=== PATIENT | male | born 1955 | race Caucasian/White ===

== ENCOUNTER 2019-03-04 07:58 | Emergency (ER) | payer OTHER ==
[~2019-03-04] VITALS: Ht 193 cm; Wt 78.6 kg
[2019-03-04] MEDS ORDERED: PROPARACAINE 0.5% OPHTH SOL 15ML OD ONE (08:45)
[2019-03-04 09:00] LABS: BASO % 0.4 % (0.0-1.0); EOS % 0.4 % (0.0-3.0); HEMATOCRIT 46.9 % (42.0-52.0); HEMOGLOBIN 15.6 g/dl (13.5-17.5); LYMPH # 1.4 10^3/uL (1.5-5.0); LYMPH % 13.8 % (24.0-44.0); MEAN CORPUSCULAR HEMOGLOBIN 28.9 pg (27.0-33.0); MEAN CORPUSCULAR HGB CONC 33.3 g/dl (32.0-36.5); MEAN CORPUSCULAR VOLUME 86.9 fl (80.0-96.0); MONO # 0.7 10^3/uL (0.0-0.8); MONO % 6.7 % (0.0-5.0); NEUTROPHILS # 7.9 10^3/uL (1.5-8.5); NEUTROPHILS % 78.3 % (36.0-66.0); PLATELET COUNT, AUTOMATED 212 10^3/uL (150-450); WHITE BLOOD COUNT 10.1 10^3/uL (4.0-10.0)
--- NOTE | 2019-03-04 09:12 | REP ---
CT of the head without contrast Indication: Facial pain/headache. Comparison: None Technique: Axial CT of the head was performed without contrast. Findings: There is no visible soft tissue swelling or calvarial fracture. There is no evidence of acute intracranial hemorrhage or extra-axial fluid collection. [place]-white matter differentiation is maintained. There is no mass effect or midline shift. The basal cisterns are patent. There is no hydrocephalus. The visualized paranasal sinuses and mastoid air cells are clear. Impression: No acute intracranial abnormality. Electronically Signed by Mark Fuentes MD 03/04/2019 09:03 A
[2019-03-04 09:20] LABS: ERYTHROCYTE SEDIMENTATION RATE 12 mm/hr (0-20)
[2019-03-04 09:22] LABS: ALBUMIN 3.8 GM/DL (3.2-5.2); ALT/SGPT 31 U/L (12-78); BILIRUBIN,TOTAL 0.5 MG/DL (0.2-1.0); BLOOD UREA NITROGEN 16 MG/DL (7-18); CALCIUM LEVEL 9.3 MG/DL (8.8-10.2); CARBON DIOXIDE LEVEL 25 MEQ/L (21-32); CHLORIDE LEVEL 109 MEQ/L (98-107); CREATININE FOR GFR 0.93 MG/DL (0.70-1.30); GLOMERULAR FILTRATION RATE > 60.0 (>49); GLUCOSE, FASTING 101 MG/DL (70-100); POTASSIUM SERUM 4.1 MEQ/L (3.5-5.1); SODIUM LEVEL 142 MEQ/L (136-145); TOTAL PROTEIN 6.8 GM/DL (6.4-8.2)
--- NOTE | 2019-03-04 12:14 | REP ---
MRI of the brain without contrast Indication: Facial pain/paresthesia right. Comparison: CT head of today. Technique: MRI of the brain was performed without contrast utilizing sagittal T1 FLAIR, and axial DWI, T1, T2, GRE, and FLAIR imaging. Findings: There is no restricted diffusion to suggest acute ischemia or infarction. There are mild scattered T2 hyperintensities within the periventricular, subcortical and pontine white matter which are nonspecific but suggestive of microvascular ischemic disease. The ventricles and sulci are symmetric. There is no extra-axial fluid collection. There is no mass effect. There is no midline shift or basal cistern effacement. The visualized flow voids are preserved. The visualized paranasal sinuses and mastoid air cells are clear. Impression: No acute ischemia or infarction. Mild white matter changes are nonspecific but suggestive of microvascular ischemic disease. Electronically Signed by Mark Fuentes MD 03/04/2019 12:05 P
--- NOTE | 2019-03-04 12:18 | REP ---
MRA of the brain without contrast Indication: Facial pain/paresthesia right. Comparison: None Technique: 3D time of flight MR angiogram of the [place] of [place] was performed without contrast. MIP images of the vessels were obtained including tumble and spin MIP imaging. Findings: There is antegrade flow within the distal ICAs and proximal MCAs and ACAs, the distal vertebral arteries, basilar artery and proximal product support rep. There is no evidence of cerebrovascular occlusion or aneurysmal formation. Impression: No cerebrovascular occlusion or aneurysmal formation. Electronically Signed by Mark Fuentes MD 03/04/2019 12:10 P
[2019-03-04 14:33] VITALS: BP 140/78
[2019-03-06 00:07] LABS: Lyme Disease IgG/IgM Antibodie <0.91 ISR (0.00-0.90); Lyme Disease IgM Ab Quantitati <0.80 index (0.00-0.79)
== END 2019-03-04 14:46 | disposition home or self-care (01) ==
LOC: M ED 07:58
DX: R51 Headache (principal); H57.11 Ocular pain, right eye; S04.5 Injury of facial nerve; X31.XXXS Exposure to excessive natural cold, sequela; F17.200 Nicotine dependence, unspecified, uncomplicated; Z87.828 Personal history of other (healed) physical injury and trauma

== ENCOUNTER 2020-07-06 11:30 | Day surgery (SDC) | payer MEDICARE, OTHER ==
[~2020-07-06] VITALS: Ht 180.3 cm; Wt 77.3 kg
[2020-07-06] MEDS ORDERED: NS 1,000 ML IV SCH (11:57)
[2020-07-06] MEDS ORDERED: ONDANSETRON 4MG/2ML VIAL IV ONE (12:00)
[2020-07-06] MEDS ORDERED: KETOROLAC 30 MG/ML 1ML VIAL IV ONE (12:00)
[2020-07-06 12:29] LABS: BASO # 0.1 10^3/uL (0.0-0.2); BASO % 0.4 % (0.0-1.0); EOS % 0.1 % (0.0-3.0); HEMOGLOBIN 15.7 g/dl (13.5-17.5); LYMPH # 1.8 10^3/uL (1.5-5.0); LYMPH % 8.8 % (24.0-44.0); MEAN CORPUSCULAR HEMOGLOBIN 28.2 pg (27.0-33.0); MEAN CORPUSCULAR VOLUME 88.1 fl (80.0-96.0); MONO # 0.9 10^3/uL (0.0-0.8); MONO % 4.2 % (0.0-5.0); NEUTROPHILS # 17.8 10^3/uL (1.5-8.5); NEUTROPHILS % 85.7 % (36.0-66.0); PLATELET COUNT, AUTOMATED 266 10^3/uL (150-450); RED BLOOD COUNT 5.56 10^6/uL (4.30-6.10); WHITE BLOOD COUNT 20.8 10^3/uL (4.0-10.0)
--- NOTE | 2020-07-06 12:46 | REP ---
INDICATION: renal colic left COMPARISON: None. TECHNIQUE: CT Scan of the abdomen and pelvis was performed without intravenous contrast. Sagittal and coronal reconstruction images performed. FINDINGS: Lung bases: There is a calcified granuloma in the right lung base. There is a small hiatal hernia. Liver: Grossly unremarkable. Gallbladder: Unremarkable. Spleen: There are multiple calcified granulomas in the spleen. Adrenals: Normal. Pancreas: Grossly unremarkable.. Kidneys: There is a 5 mm calculus at the left ureterovesical junction causing mild left hydroureteronephrosis. There is no right renal calculus or hydronephrosis. No calculus is seen in the collapsed urinary bladder. Small and large bowel: Multiple diverticula are seen of the sigmoid and left colon. There is diffuse thickening of the sigmoid colon likely representing chronic diverticulitis... Free fluid: None. Abdominal aorta: No aneurysm. Adenopathy: None. Appendix: Not inflamed. Osseous structures: There are degenerative changes of the spine without compression deformity. Pelvis: There are small bilateral inguinal hernias containing fat. There is a small umbilical hernia containing fat. There is a small supraumbilical ventral hernia containing noninflamed fat. IMPRESSION: There is a 5 mm calculus at the left ureterovesical junction causing mild left hydroureteronephrosis. Sigmoid and left colonic diverticulosis. There is diffuse thickening of the sigmoid colon likely representing chronic diverticulitis. No free air or free fluid. <Electronically signed by Milind Orourke > 07/06/20 0624
[2020-07-06] MEDS ORDERED: ceFAZolin SOD 2 GM in IV 1 EA IV ONE (13:00)
[2020-07-06 13:14] LABS: BLOOD UREA NITROGEN 14 MG/DL (7-18); CREATININE FOR GFR 1.14 MG/DL (0.70-1.30); GLOMERULAR FILTRATION RATE > 60.0 (>49); GLUCOSE, FASTING 136 MG/DL (70-100); SODIUM LEVEL 140 MEQ/L (136-145)
[2020-07-06 13:15] LABS: ALBUMIN 4.2 GM/DL (3.2-5.2); ALT/SGPT 39 IU/L (0-32); BILIRUBIN,DIRECT 0.1 MG/DL (0.0-0.2); BILIRUBIN,TOTAL 0.5 MG/DL (0.2-1.0); CALCIUM LEVEL 9.6 MG/DL (8.8-10.2); CARBON DIOXIDE LEVEL 23 mmol/L (20-29); CHLORIDE LEVEL 107 MEQ/L (98-107); POTASSIUM SERUM 4.1 MEQ/L (3.5-5.1); TOTAL PROTEIN 7.3 GM/DL (6.4-8.2)
[2020-07-06] MEDS ORDERED: MORPHINE 2 MG/ML 1ML VIAL (J2270) IV ONE (13:15)
[2020-07-06 14:05] LABS: LIPASE 80 U/L (73-393)
[2020-07-06 14:41] LABS: RSV AMPLIFICATION NEGATIVE (NEGATIVE)
[2020-07-06] MEDS ORDERED: MORPHINE 4 MG/ML 1ML VIAL/SYRINGE (J2270) IV ONE (14:45)
--- OUTSIDE RECORDS SUMMARY | 2020-07-06 17:12 | CCD | Continuity of Care Document ---
Author Author John LAUGHLIN M.D. Organization Unknown Address [address] [place] [address] Phone [phone] Care Team Providers Care Trailer Rental Clerk Name Role Phone Jaspal Pollard M.D. [facility] [phone] Problems Active Problems Provider Date Atypical facial pain Vasiliy Laughlin M.D. Onset: 01/15/2014 Social History Type Date Description Comments Sex Unknown Tobacco Use Start: Unknown Patient is a current smoker, smo kes every day Allergies, Adverse Reactions, Alerts Description No Known Drug Allergies Medications Active Medications SIG Qnty Indications Ordering Provide r Date Ibuprofen 200mg Tablets take 2 tabs as needed pain every 8 hours Vasiliy Laughlin M.D. Immunizations Description No Information Available Vital Signs Date Vital Result Comment 06/04/2020 10:00am Respiratory Rate 12 /min Height 72 inches 6'0" Weight 168.00 lb BMI (Body Mass Index) 22.8 kg/m2 [place] [facility] Weight 178 lb 12/03/2019 1:17pm Respiratory Rate 12 /min Height 72 inches 6'0" Weight 171.00 lb BMI (Body Mass Index) 23.2 kg/m2 [place] [facility] Weight 178 lb Results Description No Information Available Procedures Description No Information Available Medical Devices Description No Information Available Encounters Type Date Location Provider Dx Diagnosis Office Visit 06/04/2020 9:30a Main office - [place] Vasiliy kim M.D. G50.1 Atypical facial pain Assessments Date Code Description Provider 06/04/2020 G50.1 Atypical facial pain Vasiliy stanford M.D. Plan of Treatment No Information Available Functional Status Description No Information Available Mental Status Description No Information Available Referrals Description No Information Available
--- OUTSIDE RECORDS SUMMARY | 2020-07-06 17:12 | CCD | Continuity of Care Document ---
Author Author John LAUGHLIN M.D. Organization Unknown Address [address] [place], [place] [address] Phone [phone] Care Team Providers Care Fulfillment Specialist Name Role Phone Jaspal Pollard M.D. [facility] [phone] Problems Active Problems Provider Date Atypical facial [...] lb BMI (Body Mass Index) 22.8 kg/m2 [place] [facility] Weight 178 lb 12/03/2019 1:17pm Respiratory Rate 12 /min Height 72 inches 6'0" Weight 171.00 lb BMI (Body Mass Index) 23.2 kg/m2 [place] [facility] Weight 178 lb Results Description No Information Available Procedures Description No Information Available Medical Devices Description No Information Available Encounters Description No Information Available Assessments Date Code Description Provider 06/04/2020 G50.1 Atypical facial pain Vasiliy stanford M.D. Plan of Treatment No Information Available Functional Status Description No Information Available Mental Status Description No Information Available Referrals Description No Information Available
--- OUTSIDE RECORDS SUMMARY | 2020-07-06 17:13 | CCD ---
Author Author [facility] Organization [facility] Address Unknown Phone Unavailable Care Team Providers Care Inspector Machine Cut Glass Name Role Phone Liam, L Agustina GENERAL DENTIST/OWNER Unavailable Unavailable [place], L Agustina GENERAL DENTIST/OWNER Unavailable Unavailable Liam, L Agustina GENERAL DENTIST/OWNER Unavailable Unavailable Liam, L Agustina GENERAL DENTIST/OWNER Unavailable Unavailable Liam, L Agustina GENERAL DENTIST/OWNER Unavailable Unavailable Liam, L Agustina GENERAL DENTIST/OWNER Unavailable Unavailable Liam, L Agustina GENERAL DENTIST/OWNER Unavailable Unavailable Liam, L Agustina GENERAL DENTIST/OWNER Unavailable Unavailable Liam, L Agustina GENERAL DENTIST/OWNER Unavailable Unavailable [place], L Agustina GENERAL DENTIST/OWNER Unavailable Unavailable Liam, L Agustina GENERAL DENTIST/OWNER Unavailable Unavailable [place], L Agustina GENERAL DENTIST/OWNER Unavailable Unavailable [place], L Agustina GENERAL DENTIST/OWNER Unavailable Unavailable Liam, L Agustina GENERAL DENTIST/OWNER Unavailable Unavailable [place], L Agustina GENERAL DENTIST/OWNER Unavailable Unavailable [place], L Agustina GENERAL DENTIST/OWNER Unavailable Unavailable Liam, L Agustina GENERAL DENTIST/OWNER Unavailable Unavailable [place], L Agustina GENERAL DENTIST/OWNER Unavailable Unavailable [place], L Agustina GENERAL DENTIST/OWNER Unavailable Unavailable Liam, L Agustina GENERAL DENTIST/OWNER Unavailable Unavailable Liam, L Agustina GENERAL DENTIST/OWNER Unavailable Unavailable Liam, L Agustina GENERAL DENTIST/OWNER Unavailable Unavailable [place], L Agustina GENERAL DENTIST/OWNER Unavailable Unavailable Liam, L Agustina GENERAL DENTIST/OWNER Unavailable Unavailable [place], L Agustina GENERAL DENTIST/OWNER Unavailable Unavailable Liam, L Agustina GENERAL DENTIST/OWNER Unavailable Unavailable Liam, L Agustina GENERAL DENTIST/OWNER Unavailable Unavailable [place], L Agustina GENERAL DENTIST/OWNER Unavailable Unavailable [place], L Agustina GENERAL DENTIST/OWNER Unavailable Unavailable [place], L Agustina GENERAL DENTIST/OWNER Unavailable Unavailable [place], L Agustina GENERAL DENTIST/OWNER Unavailable Unavailable Janina Lombardo MD Unavailable Unavailable Janina Lombardo MD Unavailable Unavailable Janina Lombardo MD Unavailable Unavailable Janina Lombardo MD Unavailable Unavailable Janina Lombardo MD Unavailable Unavailable Janina Lombardo MD Unavailable Unavailable Janina Lombardo MD Unavailable Unavailable Janina Lombardo MD Unavailable Unavailable Janina Lombardo MD Unavailable Unavailable Janina Lombardo MD Unavailable Unavailable Janina Lombardo MD Unavailable Unavailable Janina Lombardo MD Unavailable Unavailable Janina Lombardo MD Unavailable Unavailable Janina Lombardo MD Unavailable Unavailable Janina Lombardo MD Unavailable Unavailable Janina Lombardo MD Unavailable Unavailable Janina Lombardo MD Unavailable Unavailable Janina Lombardo MD Unavailable Unavailable Janina Lombardo MD Unavailable Unavailable Janina Lombardo MD Unavailable Unavailable Janina Lombardo MD Unavailable Unavailable Janina Lombardo MD Unavailable Unavailable Janina Lombardo MD Unavailable Unavailable Janina Lombardo MD Unavailable Unavailable Janina Lombardo MD Unavailable Unavailable Janina Lombardo MD Unavailable Unavailable Janina Lombardo MD Unavailable Unavailable Janina Lombardo MD Unavailable Unavailable Janina Lombardo MD Unavailable Unavailable Janina Lombardo MD Unavailable Unavailable Janina Lombardo MD Unavailable Unavailable Janina Lombardo MD Unavailable Unavailable Janina Lombardo MD Unavailable Unavailable Janina Lombardo MD Unavailable Unavailable Janina Lombardo MD Unavailable Unavailable Janina Lombardo MD Unavailable Unavailable Janina Lombardo MD Unavailable Unavailable Janina Lombardo MD Unavailable Unavailable Janina Lombardo MD Unavailable Unavailable Janina Lombardo MD Unavailable Unavailable Janina Lombardo MD Unavailable Unavailable Janina Lombardo MD Unavailable Unavailable Janina Lombardo MD Unavailable Unavailable Janina Lombardo MD Unavailable Unavailable Janina Lombardo MD Unavailable Unavailable Janina Lombardo MD Unavailable Unavailable Janina Lombardo MD Unavailable Unavailable Janina Lombardo MD Unavailable Unavailable Janina Lombardo MD Unavailable Unavailable Janina Lombardo MD Unavailable Unavailable Janina Lombardo MD Unavailable Unavailable Grupo, O Samah MD Unavailable Unavailable Grupo, O Samah MD Unavailable Unavailable Grupo, O Samah MD Unavailable Unavailable Grupo, O Samah MD Unavailable Unavailable Grupo, O Samah MD Unavailable Unavailable Grupo, O Samah MD Unavailable Unavailable Grupo, O Samah MD Unavailable Unavailable Grupo, O Samah MD Unavailable Unavailable Grupo, O Samah MD Unavailable Unavailable Grupo, O Samah MD Unavailable Unavailable Grupo, O Samah MD Unavailable Unavailable Grupo, O Samah MD Unavailable Unavailable Grupo, O Samah MD Unavailable Unavailable Grupo, O Samah MD Unavailable Unavailable Grupo, O Samah MD Unavailable Unavailable Grupo, O Samah MD Unavailable Unavailable Grupo, O Samah MD Unavailable Unavailable Grupo, O Samah MD Unavailable Unavailable Grupo, O Samah MD Unavailable Unavailable Grupo, O Samah MD Unavailable Unavailable Grupo, O Samah MD Unavailable Unavailable Grupo, O Samah MD Unavailable Unavailable Grupo, O Samah MD Unavailable Unavailable Grupo, O Samah MD Unavailable Unavailable Re-disclosure Warning The records that you are about to access may contain information from federally-assisted alcohol or drug abuse programs. If such information is present, then the following federally mandated warning applies: This information has been disclosed to you from records protected by federal confidentiality rules (42 CFR part 2). The federal rules prohibit you from making any further disclosure of this information unless further disclosure is expressly permitted by the written consent of the person to whom it pertains or as otherwise permitted by 42 CFR part 2. A general authorization for the release of medical or other information is NOT sufficient for this purpose. The Federal rules restrict any use of the information to criminally investigate or prosecute any alcohol or drug abuse patient.The records that you are about to access may contain highly sensitive health information, the redisclosure of which is protected by Article 27-F of the [facility] Public Health law. If you continue you may have access to information: Regarding HIV / AIDS; Provided by facilities licensed or operated by the [facility] Office of Mental Health; or Provided by the [facility] Office for People With Developmental Disabilities. If such information is present, then the following [facility] mandated warning applies: This information has been disclosed to you from confidential records which are protected by state law. State law prohibits you from making any further disclosure of this information without the specific written consent of the person to whom it pertains, or as otherwise permitted by law. Any unauthorized further disclosure in violation of state law may result in a fine or intermediate sentence or both. A general authorization for the release of medical or other information is NOT sufficient authorization for further disc losure. Encounters Encounter Providers Location Date Indications Data Source(s ) Office Visit Attender: Vasiliy Lombardo MD [facility] 06/04/2020 08:30:00 AM EST [facility] ([facility], ) Outpatient Attender: Vasiliy Lombardo MD [facility] 06/12/2019 01:15:00 PM EST [facility] ([facility], ) [facility] 07:44:00 AM EDT - 04/15/2019 07:45:00 AM T [facility] Patient discharged. Insurance Providers Payer name Policy type / Coverage type Policy ID Covered alliance party ID Covered alliance party's relationship to sanchez Policy Sanchez Plan Information MEDICARE [id number] SP [id number] [facility] [id number] WI2 [id number] [facility] [id number] SPOUSE [id number] [facility] O [id number] S [id number] [facility] [id number] [place] [id number] [place] [id number] [id number] [facility] [id number] SP [id number] [place] [id number] [place]2 [id number] Vital Signs ID Date Data Source UNK Name Value Range Interpretation Code Description Data Source(s) [place] body weight 178 [lb_av] 178 [lb_av] COLTONEN T ([facility], ) Body mass index (BMI) [Ratio] 22.8 kg/m2 22.8 k g/m2 [facility] Body weight 168.00 [lb_av] 168.00 [lb_av] KEVIN T ([facility], ) Body height 72 [in_i] 72 [in_i] MEDJENY ([facility], ) 6'0" Respiratory rate 12 /min 12 /min [facility] ( [facility], ) [place] body weight 178 [lb_av] 178 [lb_av] MEDEN T ([facility], ) Body mass index (BMI) [Ratio] 23.2 kg/m2 23.2 k g/m2 [facility] ([facility]) Body weight 171.00 [lb_av] 171.00 [lb_av] MEDEN T ([facility], ) Body height 72 [in_i] 72 [in_i] [facility] ([facility]) 6'0" Respiratory rate 12 /min 12 /min [facility] ( [facility]) Body mass index (BMI) [Ratio] 23.2 kg/m2 23.2 k g/m[facility] Body weight 171.00 [lb_av] 171.00 [lb_av] MEDEN T ([facility]) Body height 72 [in_i] 72 [in_i] [facility] ([facility], ) 6'0" Respiratory rate 12 /min 12 /min [facility] ( [facility]) Heart rate 76 /min 76 /min [facility] ([facility]) Diastolic blood pressure 72 mm[Hg] 72 mm[Hg] [facility] ([facility], ) Systolic blood pressure 140 mm[Hg] 140 mm[Hg] Aric MCKEON ([facility])
--- NOTE | 2020-07-06 17:26 | ECGEPIP ---
[facility] - ED Test Date: 2020-07-06 Pat Name: JUAN MANUEL ARENAS Department: Room: - Gender: Male Photographic Editor: kirill : 1955 Requested By: NIKKI BARRIOS Order Number: [id number] Reading MD: Wilma Ramos Measurements Intervals [place] Rate: 76 P: 82 NC: 195 QRS: 77 QRSD: 86 T: 79 QT: 369 QTc: 415 Interpretive Statements SINUS RHYTHM NSTTW abnormalities No prior Electronically Signed on 07-06-2020 17:26:03 EST by Wilma Ramos
--- NOTE | 2020-07-06 17:31 | SMCUROLCON ---
Urology Consultation General Date of Consultation 07/06/20 Reason For Consultation This patient is seen for Abdominal Pain. History of Present Illness The patient is a 64-year-old male who presented to the emergency room for acute onset of left sided flank and abdominal pain. A CT scan was performed showing the patient has a 5 mm distal left ureteral calculus causing mild to moderate hydroureteronephrosis. He has no past history of stones Because of the pain level, elevated white cell count, size and location of the stone with hydronephrosis, urology consult was called. The patient relates a rather vague and incomplete history but apparently the pain has been present off and on for at least a few weeks. It became much more intense today causing him to present to the emergency room for CT scan shows a 5 mm distal left ureteral calculus with hydroureteronephrosis. There are other pelvic calcifications, but I cannot determine if these are inside the ureter or not. Past Medical History Medical History No previous medical problems Surgical Hstory No previous surgery Family History Significant Family History: No pertinent family hx Family History Not applicable Social History Drugs: denies Medications Current Medications Current Medications Medications (Trade) Dose Ordered Sig/Duncan Route PRN Reason Start Time Stop Time Status Last Admin Dose Admin Home Med (Med Rec Complete!) ASDIRECTED XX 07/06/20 13:15 07/06/20 13:08 DC Sodium Chloride 1,000 ml @ 100 mls/hr Q10H IV 07/06/20 11:57 07/06/20 13:33 Allergies Allergies: Coded Allergies: No Known Allergies (Unverified , 03/04/19) Review of Systems General: Reports: Normal Appetite; Denies: Fatigue, Malaise Constitutional: Denies: Fever, Chills, Sweats, Weakness, Malaise Eyes: Denies: Pain, Vision change ENT: Denies: Head Aches, Sore Throat, Epistaxis Skin: Denies: Rash, Lesions, Breakdown, Nail Changes Pulmonary: Denies: Dyspnea, Cough Cardiovascular: Denies Chest Pain, Denies Palpitations Gastrointestinal: Reports: Nausea Genitourinary: Denies: Dysuria, Frequency, Incontinence, Hematuria Hematologic: Denies: Bruising, Bleeding Excessively Endocrine: Denies: Polydipsia, Polyphagia, Polyuria Musculoskeletal: Denies: Neck Pain, Back Pain Neurological: Denies: Weakness, Numbness, Incoordination, Change in Speech Psych: Reports: Mood Normal; Denies: Anxiety, Depression Physical Examination General Exam: Cooperative, Severe Distress EYE EXAM: PERRLA, Conjunctiva & lids normal, EOMI; No: Sclera icteric ENT EXAM: Atraumatic, Mucous membr. moist/pink, Pharynx Normal Neck Exam: Supple; No: JVD, thyromegaly Chest Exam: Clear to auscultation, Normal air movement Heart Exam: Rate Normal, Regular Rhythm, Normal S1, Normal S2; No: Murmurs, Rubs Abdomen Exam: Other (tender left lower quadrant and 3+ left CVA tenderness.) Male Exam: Normal Genital Exam Extremity Exam: Normal Pulses; No: Clubbing, Cyanosis, Edema Skin Exam: Nl turgor and temperature; No: Rash, Breakdown Neuro Exam: Normal Gait, Normal Speech, Cranial Nerves 3-12 NL, Reflexes 2+ Psych Exam: Mental status NL, Mood NL, Oriented x 3 Vital Signs/I&O Vital Signs Date Time Temp Pulse Resp B/P (MAP) Pulse Ox O2 Delivery O2 Flow Rate FiO2 07/06/20 13:34 97.3 74 22 138/85 99 Room Air Laboratory Data 24H Labs Laboratory Tests 2 07/06/20 12:20: Immature Granulocyte % (Auto) 0.8, Neutrophils (%) (Auto) 85.7H, Lymphocytes (%) (Auto) 8.8L, Monocytes (%) (Auto) 4.2, Eosinophils (%) (Auto) 0.1, Basophils (%) (Auto) 0.4, Neutrophils # (Auto) 17.8H, Lymphocytes # (Auto) 1.8, Monocytes # (Auto) 0.9H, Eosinophils # (Auto) 0.0, Basophils # (Auto) 0.1, Nucleated Red Blood Cells % (auto) 0.0, Urine Color YELLOW, Urine Appearance HAZY, Urine pH 6.0, Urine Specific [place] 1.020, Urine Protein 2+H, Urine Glucose (UA) NEGATIVE, Urine Ketones 1+H, Urine Blood 2+H, Urine Nitrite NEGATIVE, Urine Bilirubin NEGATIVE, Urine Urobilinogen 0.2, Urine Leukocyte Esterase 1+H, Urine WBC (Auto) 21H, Urine RBC (Auto) 176H, Urine Hyaline Casts (Auto) 9, Urine Bacteria (Auto) NEGATIVE, Urine Squamous Epithelial Cells 0, Urine Mucus (Auto) LARGE, Urine Sperm (Auto) , Anion Gap 10, Glomerular Filtration Rate > 60.0, Calcium Level 9.6, Total Bilirubin 0.5, Direct Bilirubin 0.1, Aspartate Amino Transf (AST/SGOT) 25, Alanine Aminotransferase (ALT/SGPT) 39H, Alkaline Phosphatase 68, Total Protein 7.3, Albumin 4.2, Albumin/Globulin Ratio 1.4, Lipase 80 07/06/20 13:50: CBC/BMP Laboratory Tests 07/06/20 12:20 Microbiology Microbiology 07/06/20 Urine Culture, Received Pending Assessment Distal left ureteral calculus with obstruction Plan Options were presented to the patient including pain control with increased hydration and trying to pass the stone on his own or having ureteroscopic procedure to insert a stent or retrieve the stone with or without laser lithotripsy. The advantages, alternatives and disadvantages of each were discussed. The patient wishes at this point to proceed with ureteroscopic laser lithotripsy if possible. If not, a stent will be inserted and laser lithotripsy can be performed at a later date depending upon the difficulty in treating the stone. I discussed with the patient these alternatives, advantages and disadvantages and the complications including infection, pain, bleeding, perforation, strictures and that he may need further procedures to retrieve the stone. He chose to continue with this plan. Time Spent on Consult: Time Spent / Consult (Minutes): 70 SAVAGE AGUILAR MD Jul 06, 2020 14:26
[2020-07-06] MEDS ORDERED: LIDOCAINE 2% 100MG/5ML SDV (FOR ANES.) As Ordered ONE (18:27)
[2020-07-06] MEDS ORDERED: propofoL 200 MG/20 ML VIAL As Ordered ONE (18:27)
[2020-07-06] MEDS ORDERED: MIDAZOLAM INJ 2MG/2ML VIAL (J2250 PER 1MG) As Ordered ONE (18:28)
[2020-07-06] MEDS ORDERED: fentaNYL 100 MCG/2 ML INJECTION (J3010) As Ordered ONE ×2 (18:29→19:36)
[2020-07-06] MEDS ORDERED: dexameTHASONE 4 MG/ML 1ML VIAL (J1100 PER 1MG) As Ordered ONE (18:32)
[2020-07-06] MEDS ORDERED: CONRAY-60 60% 50ML VIAL (Q9961) As Ordered ONE (18:45)
[2020-07-06] MEDS ORDERED: ACETAMINOPHEN 1000MG 100ML IV BTL (OFIRMEV) (J0131 PER 10MG) As Ordered ONE (19:37)
[2020-07-06] MEDS ORDERED: KETOROLAC 60MG 2ML VIAL As Ordered ONE (19:38)
--- NOTE | 2020-07-06 20:11 | ROOPDOC ---
[facility] Report Of Operation Report of Operation DATE OF PROCEDURE: 07/06/20 PREPROCEDURE DIAGNOSES: Left ureteral calculus with hydronephrosis POSTPROCEDURE DIAGNOSES: Same PROCEDURE: Cystoscopy, left retrograde pyelogram, ureteroscopic stone extraction, stent insertion, x-ray interpretation SURGEON: Bob Cordero MD REGISTERED NURSE MATERNITY: None ANESTHESIA: Mac ESTIMATED BLOOD LOSS: Approximately 5 mL. COMPLICATIONS: None REMARKS: Very tight intramural ureter PROCEDURE NOTE: Patient was brought to the operating room for ureteroscopic stone extraction because of an obstructing 5 mm left UVJ calculus with severe pain and hydroureteronephrosis. DESCRIPTION OF PROCEDURE: The patient was placed on the table in supine position, given general anesthesia, placed in lithotomy position, prepped and draped in an aseptic manner and timeout was performed. A 22 Marshallese cystoscope was then inserted into the meatus and advanced under direct vision of a 30 lens to the bladder. The prostate was enlarged with some median lobe enlargement and lateral lobe obstruction. The bladder appeared normal but the left ureteral orifice was edematous. A 5 Marshallese Pollack catheter was inserted into meatus and 10 mL of diluted contrast was injected showing the patient had a very distal ureteral calculus. A wire guide was then left in place and the cystoscope was removed. A short ureteroscope was then advanced alongside the safety wire and, with the aid of a second wire, was advanced up to the stone. The stone was entrapped in a basket and successfully extracted intact. Repeat inspection showed no further stones. The cystoscope was then advanced over the safety wire and a 5 Marshallese double-J catheter was advanced over the wire and [place] in the renal pelvis and the bladder when the wire was removed. The bladder was then drained, cystoscope was removed and the patient was awakened and sent to recovery room in stable condition having tolerated the procedure well. The stone was sent to pathology. Fluoroscopy was used throughout the case and interpreted throughout the case to aid in identifying the stone and extracting the stone and placing the stent. BOB CORDERO MD Jul 06, 2020 20:11
--- NOTE | 2020-07-06 20:12 | REP ---
INDICATION: LEFT STENT PLACEMENT. TECHNIQUE: Fluoroscopy time 30 seconds. FINDINGS: Single spot view of the left upper abdomen shows the proximal portion of a double pigtail stent in the region of the left renal silhouette. IMPRESSION: As above <Electronically signed by Edouard Martinez > 07/06/202007
[2020-07-06] MEDS ORDERED: PERCOCET 5MG/325MG TAB PO PRN (20:45)
[2020-07-06] MEDS ORDERED: ONDANSETRON 4MG/2ML VIAL IV PRN (20:45)
[2020-07-06] MEDS ORDERED: fentaNYL 100 MCG/2 ML INJECTION (J3010) IV PRN (20:45)
[2020-07-06] MEDS ORDERED: IBUPROFEN 600MG TAB PO PRN (20:45)
[2020-07-06] MEDS ORDERED: LR 1,000 ML IV SCH ×2 (20:45)
[2020-07-06] MEDS ORDERED: METOCLOPRAMIDE INJ 10MG/2ML VIAL (J2765 PER 1) IV PRN (20:45)
[2020-07-06 21:15] VITALS: BP 157/78
[2020-07-13 18:08] LABS: Ca Ox Monohydrate 100 % (.); Size 4x3 mm (.)
== END 2020-07-06 22:00 | disposition home or self-care (01) ==
LOC: M ED 11:30 → M SDC 11:30 → M ED 16:25
PROVIDERS: ATTEND Urology
DX: N13.2 Hydronephrosis with renal and ureteral calculous obstruction (principal); F17.218 Nicotine dependence, cigarettes, with other nicotine-induced disorders
CPT/HCPCS: 52332; 52352; 74176; 74420; 80048; 80076; 81001; 82365; 83690; 85025; 87086; 87631; 88300; 93005; 96361; 96365; 96375; 96376; 99284; C1769; C1887; C2617; J0131; J0690; J1100; J1885; J2250; J2270; J2405; J3010; Q9961

== ENCOUNTER → 2020-09-07 | Outpatient (CLI) | payer MEDICARE, OTHER ==
--- NOTE | 2020-09-07 11:13 | REP ---
INDICATION: LEFT URETERAL CALCULI. COMPARISON: Abdomen and pelvis CT without IV contrast dated 07/06/2020 the demonstrated a 5 mm calculus in the distal left ureter and left hydronephrosis. TECHNIQUE: Multiple ultrasonographic images of the kidneys. FINDINGS: The right kidney measures 11.0 x 4.8 x 4.3 cm. The left kidney measures 11.5 x 4.4 x 5.7 cm. The kidneys are normal size. There is no hydronephrosis on the right or the left. There is no hydroureter on the right or the left. No renal calculi are identified. No solid renal masses are identified. There is a left renal cyst measuring 6.9 x 7.0 x 6.6 mm. Bladder: The bladder is adequately distended. No bladder wall masses or nodules are identified. With color Doppler evaluation there are bilateral ureteral jets. The prostate measures 4.5 x 4.3 x 4.2 cm for a volume of 42.5 cc. The prostate is enlarged. IMPRESSION: There is no hydronephrosis or hydroureter on the right or the left. No renal calculi are identified. There is a small left renal cyst. No solid renal masses are identified. There are bilateral ureteral jets into the bladder. Enlarged prostate <Electronically signed by Milind Middleton > 09/07/20 [id number]
== END ==
LOC: M RAD 10:33
PROVIDERS: ATTEND Specialist
DX: N20.1 Calculus of ureter (principal)

== ENCOUNTER → 2021-01-03 | Outpatient (CLI) | payer MEDICARE, OTHER ==
[2021-01-03 13:30] LABS: BASO # 0.1 10^3/uL (0.0-0.2); BASO % 0.7 % (0.0-1.0); EOS # 0.1 10^3/uL (0.0-0.5); EOS % 0.9 % (0.0-3.0); HEMATOCRIT 48.8 % (42.0-52.0); HEMOGLOBIN 15.5 g/dl (13.5-17.5); LYMPH # 1.9 10^3/uL (1.5-5.0); LYMPH % 24.1 % (24.0-44.0); MEAN CORPUSCULAR HEMOGLOBIN 27.9 pg (27.0-33.0); MEAN CORPUSCULAR HGB CONC 31.8 g/dl (32.0-36.5); MEAN CORPUSCULAR VOLUME 87.8 fl (80.0-96.0); MONO # 0.6 10^3/uL (0.0-0.8); MONO % 7.9 % (2.0-8.0); NEUTROPHILS # 5.3 10^3/uL (1.5-8.5); NEUTROPHILS % 65.8 % (36.0-66.0); PLATELET COUNT, AUTOMATED 246 10^3/uL (150-450); RED BLOOD COUNT 5.56 10^6/uL (4.30-6.10)
[2021-01-03 13:48] LABS: ALT/SGPT 37 U/L (12-78); BILIRUBIN,TOTAL 0.5 MG/DL (0.2-1.0); BLOOD UREA NITROGEN 13 MG/DL (7-18); CALCIUM LEVEL 9.8 MG/DL (8.8-10.2); CARBON DIOXIDE LEVEL 27 MEQ/L (21-32); CHLORIDE LEVEL 107 MEQ/L (98-107); CHOLESTEROL LEVEL 200 MG/DL (<200); CHOLESTEROL RISK RATIO 4.255 (<5); FREE T4 0.95 NG/DL (0.76-1.46); GLOMERULAR FILTRATION RATE > 60.0 (>49); GLUCOSE, FASTING 86 MG/DL (70-100); HDL CHOLESTEROL 47 MG/DL (>40); LDL CHOLESTEROL 121 MG/DL (<100); NON-HDL-C 153 MG/DL; POTASSIUM SERUM 4.6 MEQ/L (3.5-5.1); SODIUM LEVEL 140 MEQ/L (136-145); TOTAL PROTEIN 7.6 GM/DL (6.4-8.2); TRIGLYCERIDES LEVEL 159 MG/DL (<150)
[2021-01-03 14:02] LABS: HEMOGLOBIN A1c 5.9 %
== END ==
LOC: M PLALAB 11:12
PROVIDERS: ATTEND Nurse Practitioner Family
DX: R73.01 Impaired fasting glucose (principal)

== ENCOUNTER → 2021-06-29 | Outpatient (CLI) | payer MEDICARE, OTHER ==
[2021-06-29 14:45] LABS: ALBUMIN 3.8 GM/DL (3.2-5.2); ALT/SGPT 38 U/L (12-78); BILIRUBIN,TOTAL 0.3 MG/DL (0.2-1.0); BLOOD UREA NITROGEN 13 MG/DL (7-18); CALCIUM LEVEL 9.4 MG/DL (8.8-10.2); CARBON DIOXIDE LEVEL 29 MEQ/L (21-32); CHLORIDE LEVEL 106 MEQ/L (98-107); CHOLESTEROL LEVEL 187 MG/DL (<200); CREATININE FOR GFR 0.94 MG/DL (0.70-1.30); GLOMERULAR FILTRATION RATE > 60.0 (>49); GLUCOSE, FASTING 69 MG/DL (70-100); HDL CHOLESTEROL 41 MG/DL (>40); LDL CHOLESTEROL 108 MG/DL (<100); NON-HDL-C 146 MG/DL; POTASSIUM SERUM 4.5 MEQ/L (3.5-5.1); SODIUM LEVEL 140 MEQ/L (136-145); TOTAL PROTEIN 6.9 GM/DL (6.4-8.2); TRIGLYCERIDES LEVEL 192 MG/DL (<150)
[2021-06-29 15:51] LABS: HEMOGLOBIN A1c 5.9 %
== END ==
LOC: M PLALAB 11:09
PROVIDERS: ATTEND Nurse Practitioner Family
DX: R73.01 Impaired fasting glucose (principal); E78.5 Hyperlipidemia, unspecified; Z12.5 Encounter for screening for malignant neoplasm of prostate
CPT/HCPCS: 36415; 80053; 80061; 83036; G0103; G0463

== ENCOUNTER → 2021-08-25 | Outpatient (REF) | payer MEDICARE, OTHER ==
[2021-08-25 17:52] LABS: APPEARANCE, URINE CLEAR (CLEAR); BACTERIA, URINE AUTO NEGATIVE (NEGATIVE); BILIRUBIN, URINE AUTO NEGATIVE (NEGATIVE); BLOOD, URINE BLOOD NEGATIVE (NEGATIVE); COLOR, URINE YELLOW (YELLOW); GLUCOSE, URINE (UA) AUTO NEGATIVE (NEGATIVE); KETONE, URINE AUTO TRACE mg/dL (NEGATIVE); LEUKOCYTE ESTERASE, URINE AUTO NEGATIVE (NEGATIVE); NITRITE, URINE AUTO NEGATIVE (NEGATIVE); PROTEIN, URINE AUTO NEGATIVE (NEGATIVE); RBC, URINE AUTO 1 /HPF (0-3); SPECIFIC GRAVITY URINE AUTO 1.017 (1.002-1.035); SQUAMOUS EPITHELIAL CELL UR AU 0 /HPF (0-6); UROBILINOGEN, URINE AUTO 0.2 mg/dL (0.0-2.0); WBC, URINE AUTO 2 /HPF (0-3)
== END ==
LOC: M SMT 16:39
PROVIDERS: ATTEND Nurse Practitioner Women's Health
DX: Z87.442 Personal history of urinary calculi (principal); Z79.899 Other long term (current) drug therapy

== ENCOUNTER → 2022-01-01 | Outpatient (CLI) | payer MEDICARE, OTHER ==
[2022-01-01 08:43] LABS: BASO # 0.1 10^3/uL (0.0-0.2); BASO % 0.8 % (0.0-1.0); EOS # 0.1 10^3/uL (0.0-0.5); HEMATOCRIT 48.3 % (42.0-52.0); HEMOGLOBIN 15.6 g/dl (13.5-17.5); LYMPH # 1.8 10^3/uL (1.5-5.0); LYMPH % 23.3 % (24.0-44.0); MEAN CORPUSCULAR HEMOGLOBIN 28.2 pg (27.0-33.0); MEAN CORPUSCULAR HGB CONC 32.3 g/dl (32.0-36.5); MEAN CORPUSCULAR VOLUME 87.3 fl (80.0-96.0); MONO # 0.5 10^3/uL (0.0-0.8); MONO % 6.4 % (2.0-8.0); NEUTROPHILS # 5.3 10^3/uL (1.5-8.5); PLATELET COUNT, AUTOMATED 222 10^3/uL (150-450); RED BLOOD COUNT 5.53 10^6/uL (4.30-6.10); WHITE BLOOD COUNT 7.8 10^3/uL (4.0-10.0)
[2022-01-01 09:02] LABS: HEMOGLOBIN A1c 5.9 %
[2022-01-01 09:12] LABS: ALBUMIN 3.8 GM/DL (3.2-5.2); ALT/SGPT 39 U/L (12-78); BILIRUBIN,TOTAL 0.6 MG/DL (0.2-1.0); BLOOD UREA NITROGEN 15 MG/DL (7-18); CALCIUM LEVEL 9.2 MG/DL (8.8-10.2); CARBON DIOXIDE LEVEL 28 MEQ/L (21-32); CHLORIDE LEVEL 109 MEQ/L (98-107); CHOLESTEROL LEVEL 200 MG/DL (<200); CHOLESTEROL RISK RATIO 4.166 (<5); CREATININE FOR GFR 1.05 MG/DL (0.70-1.30); GLOMERULAR FILTRATION RATE > 60.0 (>49); GLUCOSE, FASTING 110 MG/DL (70-100); HDL CHOLESTEROL 48 MG/DL (>40); LDL CHOLESTEROL 130 MG/DL (<100); NON-HDL-C 152 MG/DL; POTASSIUM SERUM 4.6 MEQ/L (3.5-5.1); SODIUM LEVEL 141 MEQ/L (136-145); TOTAL PROTEIN 7.1 GM/DL (6.4-8.2); TRIGLYCERIDES LEVEL 112 MG/DL (<150)
== END ==
LOC: M LAB 08:21
PROVIDERS: ATTEND Nurse Practitioner Family
DX: R73.01 Impaired fasting glucose (principal); E78.5 Hyperlipidemia, unspecified

== ENCOUNTER → 2022-04-14 | Outpatient (REF) | payer MEDICARE, OTHER | LOC: M SFHCDERM 14:16 | PROVIDERS: ATTEND Nurse Practitioner Family | DX: C44.519 Basal cell carcinoma of skin of other part of trunk (principal) ==

== ENCOUNTER → 2022-11-23 | Outpatient (REF) | payer MEDICARE, OTHER | LOC: M SFHCDERM 15:50 | PROVIDERS: ATTEND Nurse Practitioner Family | DX: D04.62 Carcinoma in situ of skin of left upper limb, including shoulder (principal); L57.8 Other skin changes due to chronic exposure to nonionizing radiation; L57.0 Actinic keratosis; C44.519 Basal cell carcinoma of skin of other part of trunk ==

== ENCOUNTER → 2022-12-22 | Outpatient (CLI) | payer MEDICARE, OTHER ==
[2022-12-22 13:41] LABS: ALBUMIN 4.2 G/DL (3.2-5.2); ALKALINE PHOSPHATASE 62 U/L (46-116); ALT/SGPT 21 U/L (7.0-40); AST/SGOT 22 U/L (<34); BASO # 0.1 10^3/uL (0.0-0.2); BASO % 0.7 % (0.0-1.0); BILIRUBIN,TOTAL 0.7 MG/DL (0.3-1.2); BLOOD UREA NITROGEN 13 MG/DL (9-23); CALCIUM LEVEL 9.7 MG/DL (8.3-10.6); CARBON DIOXIDE LEVEL 29 MMOL/L (20-31); CHLORIDE LEVEL 107 MMOL/L (98-107); CREATININE FOR GFR 0.88 MG/DL (0.70-1.30); EOS % 0.3 % (0.0-3.0); GLOMERULAR FILTRATION RATE > 60.0 (>49); GLUCOSE, FASTING 103 MG/DL (74-106); HEMATOCRIT 49.5 % (42.0-52.0); LYMPH # 1.9 10^3/uL (1.5-5.0); LYMPH % 21.5 % (24.0-44.0); MEAN CORPUSCULAR HEMOGLOBIN 28.6 pg (27.0-33.0); MEAN CORPUSCULAR HGB CONC 32.3 g/dl (32.0-36.5); MEAN CORPUSCULAR VOLUME 88.4 fl (80.0-96.0); MONO # 0.6 10^3/uL (0.0-0.8); MONO % 7.2 % (2.0-8.0); NEUTROPHILS # 6.1 10^3/uL (1.5-8.5); NEUTROPHILS % 68.4 % (36.0-66.0); PLATELET COUNT, AUTOMATED 260 10^3/uL (150-450); POTASSIUM SERUM 4.8 MMOL/L (3.5-5.1); SODIUM LEVEL 138 MMOL/L (136-145); TOTAL PROTEIN 7.2 G/DL (5.7-8.2); WHITE BLOOD COUNT 8.9 10^3/uL (4.0-10.0)
[2022-12-22 13:42] LABS: C REACTIVE PROTEIN QUANTITATIV < 0.40 MG/DL (<1.0)
[2022-12-22 13:45] LABS: THYROID STIMULATING HORMONE 1.617 uIU/ML (0.55-4.78)
[2022-12-22 14:19] LABS: ERYTHROCYTE SEDIMENTATION RATE 20 mm/hr (0-20)
== END ==
LOC: M PLAIMG 09:52
PROVIDERS: ATTEND Nurse Practitioner Family
DX: M47.816 Spondylosis without myelopathy or radiculopathy, lumbar region (principal); M47.817 Spondylosis without myelopathy or radiculopathy, lumbosacral region; R63.4 Abnormal weight loss

== ENCOUNTER → 2023-01-02 | Outpatient (CLI) | payer MEDICARE, OTHER ==
[~2023-01-02] MED LIST: E-Z-GAS II EFFERVESCENT PACKET (SODIUM BICARB./CITRIC ACID/SIMETHICONE) As Ordered ONE; E-Z-HD 98% w/w 340GM SUSP BTL As Ordered ONE; E-Z-PAQUE 96% w/w SUSP 176GM BTL As Ordered ONE
== END ==
LOC: M RAD 09:17
PROVIDERS: ATTEND Nurse Practitioner Family
DX: R19.7 Diarrhea, unspecified (principal)

== ENCOUNTER → 2024-02-20 | Outpatient (CLI) | payer MEDICARE, OTHER ==
[2024-02-20 15:52] LABS: BASO # 0.1 10^3/uL (0.0-0.2); BASO % 0.8 % (0.0-1.0); EOS # 0.1 10^3/uL (0.0-0.5); EOS % 0.8 % (0.0-3.0); HEMATOCRIT 46.8 % (42.0-52.0); HEMOGLOBIN 15.3 g/dl (13.5-17.5); LYMPH # 2.3 10^3/uL (1.5-5.0); LYMPH % 19.5 % (24.0-44.0); MEAN CORPUSCULAR HEMOGLOBIN 28.6 pg (27.0-33.0); MEAN CORPUSCULAR HGB CONC 32.7 g/dl (32.0-36.5); MEAN CORPUSCULAR VOLUME 87.5 fl (80.0-96.0); MONO # 0.8 10^3/uL (0.0-0.8); MONO % 6.7 % (2.0-8.0); NEUTROPHILS # 8.5 10^3/uL (1.5-8.5); NEUTROPHILS % 71.5 % (36.0-66.0); PLATELET COUNT, AUTOMATED 240 10^3/uL (150-450); RED BLOOD COUNT 5.35 10^6/uL (4.30-6.10); WHITE BLOOD COUNT 11.9 10^3/uL (4.0-10.0)
[2024-02-20 16:03] LABS: ALBUMIN 3.9 G/DL (3.2-5.2); ALKALINE PHOSPHATASE 62 U/L (46-116); ALT/SGPT 37 U/L (7.0-40); AST/SGOT 29 U/L (<34); BILIRUBIN,TOTAL 0.5 MG/DL (0.3-1.2); BLOOD UREA NITROGEN 13 MG/DL (9-23); CALCIUM LEVEL 9.7 MG/DL (8.3-10.6); CARBON DIOXIDE LEVEL 27 MMOL/L (20-31); CHLORIDE LEVEL 107 MMOL/L (98-107); CHOLESTEROL LEVEL 192 MG/DL (<200); CHOLESTEROL RISK RATIO 3.89 (<5); GLOMERULAR FILTRATION RATE > 60.0 (>42); GLUCOSE, FASTING 72 MG/DL (74-106); HDL CHOLESTEROL 49.3 MG/DL (>40); LDL CHOLESTEROL 119.3 MG/DL (<100); NON-HDL-C 142.7 MG/DL; POTASSIUM SERUM 4.6 MMOL/L (3.5-5.1); SODIUM LEVEL 140 MMOL/L (136-145); TOTAL PROTEIN 7.3 G/DL (5.7-8.2); TRIGLYCERIDES LEVEL 117 MG/DL (<150)
[2024-02-20 16:19] LABS: HEMOGLOBIN A1c 5.8 % (4.0-6.0)
== END ==
LOC: M PLALAB 13:34
PROVIDERS: ATTEND Nurse Practitioner Family
DX: Z00.00 Encounter for general adult medical examination without abnormal findings (principal); R73.01 Impaired fasting glucose; E78.5 Hyperlipidemia, unspecified

== ENCOUNTER → 2024-04-09 | Outpatient (CLI) | payer MEDICARE, OTHER | LOC: M RAD 10:02 | PROVIDERS: ATTEND Nurse Practitioner Family | DX: Z87.891 Personal history of nicotine dependence (principal) ==

== ENCOUNTER 2024-06-09 06:25 | Day surgery (SDC) | payer MEDICARE, OTHER ==
[~2024-06-09] VITALS: Ht 182.9 cm; Wt 74.9 kg
[~2024-06-09 06:25] MED LIST changes: -E-Z-GAS II EFFERVESCENT PACKET (SODIUM BICARB./CITRIC ACID/SIMETHICONE) As Ordered ONE; -E-Z-HD 98% w/w 340GM SUSP BTL As Ordered ONE; -E-Z-PAQUE 96% w/w SUSP 176GM BTL As Ordered ONE; +IBUP200C88 PO; +TOBROPO TOP
[2024-06-09] MEDS ORDERED: propofoL 200 MG/20 ML VIAL As Ordered ONE (08:54)
[2024-06-09] MEDS ORDERED: PHENYLephrine 500MCG 5ML (100MCG/ML) SYRINGE As Ordered ONE (09:04)
[2024-06-09] MEDS ORDERED: GLUCAGON INJ 1MG VIAL As Ordered ONE (09:04)
[2024-06-09 09:14] VITALS: TEMP 97.4
[2024-06-09 09:32] VITALS: BP 132/70; O2SAT 98
== END 2024-06-09 09:38 | disposition home or self-care (01) ==
LOC: M OPP 06:25
PROVIDERS: ATTEND Internal Medicine Gastroenterology
DX: Z12.11 Encounter for screening for malignant neoplasm of colon (principal); K63.5 Polyp of colon; K57.30 Diverticulosis of large intestine without perforation or abscess without bleeding; K64.8 Other hemorrhoids; F17.210 Nicotine dependence, cigarettes, uncomplicated; F12.20 Cannabis dependence, uncomplicated; Z85.828 Personal history of other malignant neoplasm of skin; Z88.1 Allergy status to other antibiotic agents; Z88.8 Allergy status to other drugs, medicaments and biological substances; Z79.899 Other long term (current) drug therapy; Z80.3 Family history of malignant neoplasm of breast; Z80.8 Family history of malignant neoplasm of other organs or systems
CPT/HCPCS: 45385; 88305; J1610; J2371

== ENCOUNTER → 2024-12-25 | Outpatient (REF) | payer MEDICARE, OTHER | LOC: M SMT 16:56 | PROVIDERS: ATTEND Physician Assistant | DX: L72.3 Sebaceous cyst (principal) ==

== ENCOUNTER → 2025-03-30 | Outpatient (CLI) | payer MEDICARE ==
[2025-03-30 10:53] LABS: BASO # 0.1 10^3/uL (0.0-0.2); BASO % 0.7 % (0.0-1.0); EOS # 0.1 10^3/uL (0.0-0.5); EOS % 0.7 % (0.0-3.0); LYMPH # 1.6 10^3/uL (1.5-5.0); LYMPH % 23.6 % (24.0-44.0); MONO # 0.5 10^3/uL (0.0-0.8); MONO % 6.9 % (2.0-8.0); NEUTROPHILS # 4.6 10^3/uL (1.5-8.5); NEUTROPHILS % 67.5 % (36.0-66.0); PLATELET COUNT, AUTOMATED 249 10^3/uL (150-450)
[2025-03-30 11:03] LABS: ESTIMATED AVERAGE GLUCOSE 120.0 MG/DL (60-110)
[2025-03-30 11:24] LABS: ALT/SGPT 28.0 U/L (7.0-40); AST/SGOT 24.0 U/L (<34); CALCIUM LEVEL 9.0 MG/DL (8.3-10.6); CARBON DIOXIDE LEVEL 26.0 MMOL/L (20-31); CHLORIDE LEVEL 106.0 MMOL/L (98-107); CHOLESTEROL LEVEL 190.0 MG/DL (<200); CHOLESTEROL RISK RATIO 4.03 (<5); CREATININE FOR GFR 0.93 MG/DL (0.70-1.30); FREE T4 1.1 NG/DL (0.89-1.76); GLOMERULAR FILTRATION RATE 87.8 (>42); LDL CHOLESTEROL 119.1 MG/DL (<100); NON-HDL-C 142.9 MG/DL; POTASSIUM SERUM 4.6 MMOL/L (3.5-5.1); PSA SCREENING 4.01 NG/ML (< 4.00); SODIUM LEVEL 141.0 MMOL/L (136-145); TRIGLYCERIDES LEVEL 119.0 MG/DL (<150)
== END ==
LOC: M PLALAB 08:58
PROVIDERS: ATTEND Nurse Practitioner Family
DX: E78.5 Hyperlipidemia, unspecified (principal); D72.829 Elevated white blood cell count, unspecified; R73.01 Impaired fasting glucose; Z12.5 Encounter for screening for malignant neoplasm of prostate
CPT/HCPCS: 36415; 80053; 80061; 83036; 84439; 84443; 85025; G0103

== ENCOUNTER → 2025-06-08 | Outpatient (CLI) | payer MEDICARE | LOC: M RAD 07:30 | PROVIDERS: ATTEND Nurse Practitioner Family | DX: Z12.2 Encounter for screening for malignant neoplasm of respiratory organs (principal); F17.210 Nicotine dependence, cigarettes, uncomplicated ==